=== PATIENT | female | born 2000 | race Caucasian/White ===

== ENCOUNTER 2023-01-27 18:03 | Emergency (ER) | payer OTHER ==
[2023-01-27 19:36] LABS: Bilirubin Neg (Negative); Blood, Urine Negative (Negative); Clarity Clear (Clear); Glucose, Urine (Dipstick) Normal (Negative); Ketone, Urine Negative (Negative); Leukocyte 500 (Negative); Nitrite Negative (Negative); Protein, Urine (Dipstick) Negative (Neg-Trace); Urobilinogen Normal mg/dL (Less than 2)
[2023-01-27 20:10] LABS: Bacteria/HPF 2+ HPF (None Seen); CAUTI Indications for Culture Fever or rigors; RBC/HPF None Seen HPF (0-3); Urine Culture Reflex No No
== END 2023-01-27 20:54 | disposition home or self-care (01) ==
LOC: CSHERS 18:03
DX: O23.12 Infections of bladder in pregnancy, second trimester (principal); N30.00 Acute cystitis without hematuria; O99.891 Other specified diseases and conditions complicating pregnancy; R20.2 Paresthesia of skin; Z3A.21 21 weeks gestation of pregnancy
CPT/HCPCS: 76815; 81001; 87086

== ENCOUNTER 2023-05-15 09:48 | Day surgery (SDC) | payer OTHER ==
[2023-05-15 10:20] VITALS: BMI 29.8
[2023-05-15] MEDS ORDERED: hydrALAZINE 20 MG/ML VIAL SLOW IVP PRN (11:05)
== END 2023-05-15 13:20 | disposition home or self-care (01) ==
LOC: CSHLD/OP 09:48
PROVIDERS: ATTEND Advanced Practice Midwife
DX: Z36.89 Encounter for other specified antenatal screening (principal); O99.113 Other diseases of the blood and blood-forming organs and certain disorders involving the immune mechanism complicating pregnancy, third trimester; D68.51 Activated protein C resistance; Z79.899 Other long term (current) drug therapy; Z88.5 Allergy status to narcotic agent; Z3A.00 Weeks of gestation of pregnancy not specified

== ENCOUNTER 2023-05-27 09:46 | Day surgery (SDC) | payer OTHER ==
[2023-05-27 10:20] VITALS: BMI 29.7
[2023-05-27] MEDS ORDERED: hydrALAZINE 20 MG/ML VIAL SLOW IVP PRN (10:36)
== END 2023-05-27 13:50 | disposition home or self-care (01) ==
LOC: CSHLD/OP 09:46 → EEVIPCON 09:46 → CSHLD/OP 13:50
PROVIDERS: ATTEND Advanced Practice Midwife
DX: O36.8130 Decreased fetal movements, third trimester, not applicable or unspecified (principal); O99.113 Other diseases of the blood and blood-forming organs and certain disorders involving the immune mechanism complicating pregnancy, third trimester; D68.51 Activated protein C resistance; O99.613 Diseases of the digestive system complicating pregnancy, third trimester; K21.9 Gastro-esophageal reflux disease without esophagitis; Z88.5 Allergy status to narcotic agent; Z3A.38 38 weeks gestation of pregnancy
CPT/HCPCS: 76819; 99281

== ENCOUNTER 2023-05-28 18:00 | Inpatient (IN) | payer OTHER ==
[2023-05-28] MEDS ORDERED: Ibuprofen 800 MG TAB PO PRN (23:33)
[2023-05-28] MEDS ORDERED: hydrALAZINE 20 MG/ML VIAL SLOW IVP PRN (23:33)
[2023-05-28] MEDS ORDERED: Promethazine HCl 25 MG/ML VIAL IM PRN (23:33)
[2023-05-28] MEDS ORDERED: Ondansetron PF 4 MG/2 ML Vial IVP PRN (23:33)
[2023-05-28] MEDS ORDERED: Misoprostol 200 MCG TAB PR PRN (23:33)
[2023-05-28] MEDS ORDERED: HYDROcodone/Acetaminophen 5/325 mg Tablet PO PRN ×2 (23:33)
[2023-05-28] MEDS ORDERED: Lidocaine 1% (PF) 30 ML VIAL SC PRN (23:33)
[2023-05-28] MEDS ORDERED: fentaNYL 50 mcg/mL 1 mL Vial SLOW IVP PRN (23:33)
[2023-05-29] MEDS ORDERED: Oxytocin 30 units/NS 500 ML 500 ML IV SCH ×2 (00:15)
[2023-05-29 00:30] VITALS: BMI 29.7
[2023-05-29] MEDS: Lactated Ringer's 1,000 ML IV SCH (01:17)
[2023-05-29] MEDS: Misoprostol 100 MCG TAB VAG SCH (01:18)
[2023-05-29 01:45] LABS: Hematocrit 36.4 % (34.9-44.5); Hemoglobin 12.8 g/dL (12.0-15.5); Mean Corpuscular HGB CONC 35.2 g/dL (32.0-36.0); Mean Corpuscular Volume 93.8 fl (81.6-98.3); Mean Platelet Volume 11.1 fl (7.4-10.4); Platelet Count 159 10x3/uL (150-450); RBC Distribution Width 12.9 % (11.5-14.5); Red Blood Cell (RBC) Count 3.88 10x6/uL (3.90-5.03); White Blood Cell (WBC) Count 16.6 10x3/uL (3.5-10.5)
[2023-05-29 02:15] LABS: HBSAg Index 0.24 S/CO (0-0.99); Hep B Surf Ag - L&D Non-Reactive S/CO (NonReactive)
[2023-05-29 02:16] LABS: Syphilis Antibody Nonreactive (Nonreactive); Syphilis Antibody Index 0.04 S/CO (<1.00 Non-Reactive)
[2023-05-29] MEDS ORDERED: Penicillin G Potassium 5 MILL.UNITS in Sodium Chloride 0.9% 100 ML IVPB SCH (03:15)
[2023-05-29] MEDS: Penicillin G 2.5 MILL.units 2.5 MILL.UNITS in Premix 1 BAG IVPB SCH ×3 (08:01→17:15)
[2023-05-29] MEDS ORDERED: fentaNYL/Ropivacaine Epidural 100 ML ONE (14:26)
[2023-05-29] MEDS ORDERED: Ondansetron PF 4 MG/2 ML Vial IVP PRN (15:35)
[2023-05-29] MEDS ORDERED: diphenhydrAMINE 50 MG/ML VIAL IVP PRN (15:35)
[2023-05-29] MEDS ORDERED: Naloxone HCl 0.4 mg/ml Vial IVP PRN ×2 (15:35)
[2023-05-29] MEDS ORDERED: Promethazine HCl 25 MG/ML VIAL IM PRN (15:35)
[2023-05-29] MEDS ORDERED: ePHEDrine Sulfate 50 MG/10 ML VIAL SLOW IVP PRN (15:35)
[2023-05-29] MEDS ORDERED: Moisturizing Cream (Eucerin) 113 GM JAR TOP PRN (15:35)
[2023-05-29] MEDS ORDERED: Lactated Ringer's 500 ML IV PRN (15:35)
[2023-05-29] MEDS ORDERED: Acetaminophen 325 MG TAB PO PRN (15:35)
[2023-05-29] MEDS ORDERED: fentaNYL 2 mcg/Ropivacaine 0.2% Epidural 100 ML CADD EPIDURAL SCH (15:45)
[2023-05-29] MEDS ORDERED: Communication Order-Pharmacy FS SCH (15:45)
[2023-05-29] MEDS ORDERED: Bupivacaine 0.25% HCL 30 ML VIAL ONE (19:00)
[2023-05-30] MEDS ORDERED: Boostrix 0.5 ML (Tdap) VIAL (>/=7 yrs of age) IM ONE (01:13)
[2023-05-30] MEDS ORDERED: Benzocaine-Menthol 82.5 ML CAN TOP PRN (01:13)
[2023-05-30] MEDS ORDERED: Bisacodyl 10 MG SUPP PR PRN (01:13)
[2023-05-30] MEDS ORDERED: Lanolin Ointment 7 GM TUBE TOP PRN (01:13)
[2023-05-30] MEDS ORDERED: Oxytocin 30 units/NS 500 ML 500 ML IV SCH (01:13)
[2023-05-30] MEDS ORDERED: Misoprostol 200 MCG TAB VAG PRN (01:13)
[2023-05-30] MEDS ORDERED: hydrALAZINE 20 MG/ML VIAL SLOW IVP PRN (01:13)
[2023-05-30] MEDS ORDERED: HYDROcodone/Acetaminophen 5/325 mg Tablet PO PRN ×2 (01:13)
[2023-05-30] MEDS ORDERED: Milk Of Magnesia 30 ML UDCUP PO PRN (01:13)
[2023-05-30] MEDS: Prenatal Vitamin 1 TAB PO SCH (09:07)
[2023-05-30] MEDS: Docusate 100 MG CAP PO SCH ×2 (09:08→21:00)
[2023-05-30] MEDS: Ferrous Sulfate 325 MG TAB PO SCH ×2 (09:08→19:09)
[2023-05-30] MEDS: Ibuprofen 800 MG TAB PO SCH ×3 (13:47→21:00)
[2023-05-30] MEDS: Lactated Ringer's 1,000 ML IV SCH ×2 (19:10→19:11)
[2023-05-30] MEDS: Misoprostol 100 MCG TAB VAG SCH (19:10)
[2023-05-30] MEDS: Penicillin G 2.5 MILL.units 2.5 MILL.UNITS in Premix 1 BAG IVPB SCH (19:11)
[2023-05-31] MEDS ORDERED: Acetaminophen 500 MG TAB PO SCH (00:15)
[2023-05-31] MEDS: Ibuprofen 800 MG TAB PO SCH ×3 (05:29→21:05)
[2023-05-31] MEDS: Ferrous Sulfate 325 MG TAB PO SCH ×2 (09:01→16:49)
[2023-05-31] MEDS: Prenatal Vitamin 1 TAB PO SCH (09:02)
[2023-05-31] MEDS: Docusate 100 MG CAP PO SCH ×2 (09:02→21:05)
[2023-05-31] MEDS ORDERED: Ondansetron ODT 4 MG TAB PO PRN (10:21)
[2023-05-31 21:28] VITALS: BP 120/76; TEMP 98.9
[2023-06-01] MEDS: Ibuprofen 800 MG TAB PO SCH (05:20)
[2023-06-01] MEDS: Ferrous Sulfate 325 MG TAB PO SCH (07:18)
[2023-06-01] MEDS: Prenatal Vitamin 1 TAB PO SCH (09:14)
[2023-06-01] MEDS: Docusate 100 MG CAP PO SCH (09:14)
== END 2023-06-01 12:40 | disposition home or self-care (01) | DRG 806 ==
LOC: CSHLD 23:33 → UNDOADMIN 05-29 00:02 → CSHLD 05-29 00:02 → CSHPED 05-30 01:45
PROVIDERS: ADMIT Obstetrics & Gynecology; ATTEND Obstetrics & Gynecology
PROC: 10E0XZZ Delivery of Products of Conception, External Approach (ICD-10-PCS; principal; 2023-05-28)
PROC: 3E0P7VZ Introduction of Hormone into Female Reproductive, Via Natural or Artificial Opening (ICD-10-PCS; 2023-05-28)
PROC: 3E033XZ Introduction of Vasopressor into Peripheral Vein, Percutaneous Approach (ICD-10-PCS; 2023-05-28)
DX: O99.12 Other diseases of the blood and blood-forming organs and certain disorders involving the immune mechanism complicating childbirth (principal); D68.51 Activated protein C resistance; Z37.0 Single live birth; Z3A.38 38 weeks gestation of pregnancy
CPT/HCPCS: 36415; 76819; 85027; 86780; 86850; 86900; 86901; 87340; 99281; J1650; J2405; J2540; J2590; J3490; J7120; S0020